=== PATIENT | female | born 1965 | race Caucasian/White ===

== ENCOUNTER 2024-04-05 15:25 | Emergency (ER) | payer MEDICAID ==
[~2024-04-05] VITALS: Ht 165.1 cm; Wt 75.0 kg
[2024-04-05 15:27] VITALS: O2SAT 98
[2024-04-05] MEDS ORDERED: IBUP-2029 MT (19:25)
[2024-04-05 19:39] VITALS: BP 130/80; PULSE 86; RESP 20; TEMP 36.55848; O2SAT 98
== END 2024-04-05 19:40 | disposition home or self-care (01) ==
LOC: ER 15:25
DX: M54.2 Cervicalgia (principal); R07.89 Other chest pain; I10 Essential (primary) hypertension
CPT/HCPCS: 71045; 93005; 99283